=== PATIENT | male | born 1985 | race Caucasian/White ===

== ENCOUNTER 2022-09-09 16:38 | Inpatient (IN) | payer BC ==
[~2022-09-09] VITALS: Ht 195.6 cm; Wt 132.4 kg
[2022-09-09] MEDS ORDERED: ONDANSETRON HCL INJ 2MG/ML 2ML 2 MG/ML VIAL IV STA (17:07)
[2022-09-09] MEDS ORDERED: SODIUM CHLORIDE 0.9% 1000ML 1,000 ML IV ONE ×2 (17:15→18:15)
[2022-09-09 17:27] LABS: BASOPHILS # (AUTO) 0.1 (0.0-0.1); BASOPHILS % 0.9 % (0.0-1.0); EOSINOPHILS % 0.2 % (0.0-6.0); HEMATOCRIT 50.2 % (38.2-49.6); HEMOGLOBIN 16.8 g/dL (14.0-18.0); LYMPHOCYTES # (AUTO) 2.4 (1.0-3.2); LYMPHOCYTES % 18.1 % (18.0-39.1); MEAN CORPUSCULAR HEMOGLOBIN 30.3 pg (28-32); MEAN CORPUSCULAR HGB CONC 33.5 g/dL (31-35); MEAN CORPUSCULAR VOLUME 90.6 fL (81-99); MONOCYTES # (AUTO) 0.9 (0.2-0.8); MONOCYTES % 7.2 % (4.4-11.3); NEUTROPHILS # (AUTO) 9.4 (2.1-6.9); NEUTROPHILS % 71.3 % (38.7-80.0); PLATELET COUNT 516 x10e3/uL (140-360); RED BLOOD COUNT 5.54 x10e6/uL (4.3-5.7); RED CELL DISTRIBUTION WIDTH 10.9 % (11.7-14.4)
[2022-09-09 17:34] LABS: CLARITY,URINE CLEAR (CLEAR); COLOR,URINE YELLOW (YELLOW); KETONES,URINE >=160 (NEGATIVE); LEUKOCYTE ESTERASE ,URINE NEGATIVE (NEGATIVE); NITRITE,URINE NEGATIVE (NEGATIVE); PROTEIN,URINE DIPSTICK 2+ (NEGATIVE); URINE UROBILINOGEN 0.2 mg/dL (0.2 - 1)
[2022-09-09 17:49] LABS: ALBUMIN 3.4 g/dL (3.5-5.0); ALBUMIN/GLOBULIN RATIO 0.6 (0.8-2.0); ANION GAP 27.9 mmol/L (8-16); BACTERIA,URINE RARE /HPF; CREATININE, SERUM 1.55 mg/dL (0.72-1.25); EPITHELIAL CELLS,URINE RARE /LPF; POTASSIUM 4.9 mmol/L (3.5-5.1); WBC,URINE (MAN) 0-5 /HPF (0-5)
[2022-09-09] MEDS ORDERED: MAGNESIUM SULF 1GRAM/DEXTROSE 100 ML IV PRN (18:15)
[2022-09-09] MEDS: DEXTROSE 5%/0.45% SOD CHL 1,000 ML IV SCH (18:15)
[2022-09-09] MEDS: SODIUM CHLORIDE 0.9% 1000ML 1,000 ML IV SCH ×2 (18:15→22:15)
[2022-09-09] MEDS ORDERED: ONDANSETRON HCL INJ 2MG/ML 2ML 2 MG/ML VIAL IV PRN (18:15)
[2022-09-09] MEDS ORDERED: POTASSIUM CHLORIDE 20MEQ/100ML 200 ML IV PRN (18:15)
[2022-09-09] MEDS: INSULIN REGULAR, HUMAN 3ML VL 100 UNIT in SODIUM CHLORIDE 0.9% 100 ML IV SCH ×2 (18:23)
[2022-09-09] MEDS ORDERED: IOPAMIDOL 370 MG/ML 100 ML INFUS..BTL INJ ONE (18:26)
[2022-09-09] MEDS ORDERED: SODIUM CHLORIDE 0.9% 100 ML ONE (18:33)
[2022-09-09] MEDS ORDERED: ACETAMINOPHEN 325 MG TAB PO PRN (18:45)
[2022-09-09] MEDS ORDERED: ZOLPIDEM TARTRATE 5 MG TAB PO PRN (18:45)
[2022-09-09 20:30] VITALS: BP 158/95
[2022-09-09] MEDS ORDERED: LISINOPRIL10 MG PO (20:56)
[2022-09-09] MEDS ORDERED: LEVOTHYROXINE50 MCG PO (20:56)
[2022-09-09] MEDS ORDERED: ATORVASTATIN CA20 MG PO (20:56)
[2022-09-09] MEDS ORDERED: METFORMIN HCL500 MG PO (20:56)
[2022-09-09 21:00] VITALS: BP_SYST 142; BP_SYST 158; BP_DIAS 86; BP_DIAS 95
[2022-09-09 21:05] VITALS: BP 158/95
[2022-09-09 22:00] VITALS: BP 146/87
[2022-09-09 22:46] LABS: ANION GAP 23.6 mmol/L (8-16); CREATININE, SERUM 1.33 mg/dL (0.72-1.25); MAGNESIUM 2.1 MG/DL (1.3-2.1)
[2022-09-09 22:48] LABS: POTASSIUM 3.6 mmol/L (3.5-5.1)
[2022-09-09 23:00] VITALS: BP 133/79
[2022-09-10] VITALS (17 sets, daily range): BP systolic 108–151; BP diastolic 56–103
[2022-09-10] MEDS: DEXTROSE 5%/0.45% SOD CHL 1,000 ML IV SCH ×3 (01:50→18:07)
[2022-09-10] MEDS: SODIUM CHLORIDE 0.9% 1000ML 1,000 ML IV SCH ×7 (02:15→22:15)
[2022-09-10 02:20] LABS: ANION GAP 14.6 mmol/L (8-16); CREATININE, SERUM 1.2 mg/dL (0.72-1.25); MAGNESIUM 2.3 MG/DL (1.3-2.1); POTASSIUM 3.6 mmol/L (3.5-5.1)
[2022-09-10] MEDS: INSULIN REGULAR, HUMAN 3ML VL 100 UNIT in SODIUM CHLORIDE 0.9% 100 ML IV SCH ×4 (05:02→14:31)
[2022-09-10 06:10] LABS: BASOPHILS # (AUTO) 0.1 (0.0-0.1); BASOPHILS % 1.1 % (0.0-1.0); EOSINOPHILS # (AUTO) 0.1 (0.0-0.4); HEMATOCRIT 44.1 % (38.2-49.6); LYMPHOCYTES # (AUTO) 2.5 (1.0-3.2); LYMPHOCYTES % 24.4 % (18.0-39.1); MEAN CORPUSCULAR HEMOGLOBIN 29.9 pg (28-32); MONOCYTES # (AUTO) 1.2 (0.2-0.8); MONOCYTES % 11.7 % (4.4-11.3); NEUTROPHILS # (AUTO) 6.1 (2.1-6.9); NEUTROPHILS % 60.2 % (38.7-80.0); PLATELET COUNT 412 x10e3/uL (140-360); RED BLOOD COUNT 5.01 x10e6/uL (4.3-5.7); RED CELL DISTRIBUTION WIDTH 10.9 % (11.7-14.4)
[2022-09-10 06:29] LABS: ANION GAP 12.4 mmol/L (8-16); CALCIUM 9.2 mg/dL (8.4-10.2); CREATININE, SERUM 0.93 mg/dL (0.72-1.25); MAGNESIUM 2.1 MG/DL (1.3-2.1); POTASSIUM 3.4 mmol/L (3.5-5.1)
[2022-09-10] MEDS: POTASSIUM CHLORIDE 20MEQ/100ML 100 ML INJ PRN (06:41)
[2022-09-10] MEDS ORDERED: POTASSIUM CHLORIDE 20MEQ/100ML 100 ML ONE (06:53)
[2022-09-10] MEDS ORDERED: Vancomycin IV 1.25 GM in SODIUM CHLORIDE 0.9% 250ML 250 ML IV SCH (10:15)
[2022-09-10 10:46] LABS: ANION GAP 10.6 mmol/L (8-16); CALCIUM 8.2 mg/dL (8.4-10.2); CREATININE, SERUM 0.83 mg/dL (0.72-1.25); POTASSIUM 3.6 mmol/L (3.5-5.1)
[2022-09-10] MEDS: VANCOMYCIN HCL 1.25 GM in SODIUM CHLORIDE 0.9% 250ML 250 ML IV SCH ×2 (11:06→22:58)
[2022-09-10 14:56] LABS: ANION GAP 9.3 mmol/L (8-16); CALCIUM 8.2 mg/dL (8.4-10.2); CREATININE, SERUM 0.77 mg/dL (0.72-1.25); MAGNESIUM 2.1 MG/DL (1.3-2.1); POTASSIUM 3.3 mmol/L (3.5-5.1)
[2022-09-10] MEDS ORDERED: ATORVASTATIN 20 MG TAB PO SCH (21:00)
[2022-09-10 21:03] LABS: ANION GAP 10.9 mmol/L (8-16); CALCIUM 8.6 mg/dL (8.4-10.2); CREATININE, SERUM 0.78 mg/dL (0.72-1.25)
[2022-09-10 21:09] LABS: POTASSIUM 2.9 mmol/L (3.5-5.1)
[2022-09-10] MEDS ORDERED: POTASSIUM CHLORIDE 20MEQ/100ML 200 ML ONE (21:45)
[2022-09-11] VITALS (15 sets, daily range): BP systolic 115–162; BP diastolic 70–100
[2022-09-11 01:07] LABS: ANION GAP 10.3 mmol/L (8-16); CALCIUM 8.7 mg/dL (8.4-10.2); CREATININE, SERUM 0.71 mg/dL (0.72-1.25); MAGNESIUM 1.9 MG/DL (1.3-2.1); POTASSIUM 3.3 mmol/L (3.5-5.1)
[2022-09-11] MEDS: INSULIN REGULAR, HUMAN 3ML VL 100 UNIT in SODIUM CHLORIDE 0.9% 100 ML IV SCH ×4 (02:42→13:44)
[2022-09-11] MEDS: DEXTROSE 5%/0.45% SOD CHL 1,000 ML IV SCH ×3 (02:49→18:15)
[2022-09-11 07:35] LABS: ANION GAP 9.9 mmol/L (8-16); CALCIUM 8.6 mg/dL (8.4-10.2); CREATININE, SERUM 0.59 mg/dL (0.72-1.25); MAGNESIUM 1.9 MG/DL (1.3-2.1)
[2022-09-11 07:37] LABS: POTASSIUM 2.9 mmol/L (3.5-5.1)
[2022-09-11] MEDS ORDERED: POTASSIUM CHLORIDE 20MEQ/100ML 200 ML IV PRN (08:15)
[2022-09-11] MEDS: LISINOPRIL 10 MG TAB PO SCH (09:00)
[2022-09-11] MEDS: LEVOTHYROXINE SODIUM 50 MCG TAB PO SCH (09:00)
[2022-09-11] MEDS: POTASSIUM CHLORIDE 20MEQ/100ML 100 ML INJ PRN ×2 (09:21→20:46)
[2022-09-11] MEDS: VANCOMYCIN HCL 1.25 GM in SODIUM CHLORIDE 0.9% 250ML 250 ML IV SCH (10:30)
[2022-09-11 11:04] LABS: ANION GAP 10.5 mmol/L (8-16); CALCIUM 8.5 mg/dL (8.4-10.2); CREATININE, SERUM 0.67 mg/dL (0.72-1.25); MAGNESIUM 1.7 MG/DL (1.3-2.1); POTASSIUM 3.5 mmol/L (3.5-5.1)
[2022-09-11 15:34] LABS: ANION GAP 10.5 mmol/L (8-16); BLOOD UREA NITROGEN < 5 mg/dL (7-26); CALCIUM 8.7 mg/dL (8.4-10.2); CARBON DIOXIDE 19 mmol/L (22-29); CHLORIDE 104 mmol/L (98-107); CREATININE, SERUM 0.69 mg/dL (0.72-1.25); GLUCOSE 225 mg/dL (74-118); MAGNESIUM 1.9 MG/DL (1.3-2.1); POTASSIUM 3.5 mmol/L (3.5-5.1); SODIUM 130 mmol/L (136-145)
[2022-09-11 15:36] LABS: BUN/CREATININE RATIO 7 (6-25)
[2022-09-11 19:42] LABS: ANION GAP 9.9 mmol/L (8-16); BLOOD UREA NITROGEN < 5 mg/dL (7-26); BUN/CREATININE RATIO 8 (6-25); CALCIUM 8.9 mg/dL (8.4-10.2); CARBON DIOXIDE 19 mmol/L (22-29); CHLORIDE 108 mmol/L (98-107); CREATININE, SERUM 0.59 mg/dL (0.72-1.25); GLUCOSE 78 mg/dL (74-118); MAGNESIUM 1.9 MG/DL (1.3-2.1); SODIUM 134 mmol/L (136-145)
[2022-09-11 19:43] LABS: POTASSIUM 2.9 mmol/L (3.5-5.1)
[2022-09-11] MEDS: ATORVASTATIN 20 MG TAB PO SCH (20:45)
[2022-09-11 22:59] LABS: BLOOD UREA NITROGEN < 5 mg/dL (7-26); BUN/CREATININE RATIO 7 (6-25); CALCIUM 9.1 mg/dL (8.4-10.2); CARBON DIOXIDE 18 mmol/L (22-29); CHLORIDE 105 mmol/L (98-107); CREATININE, SERUM 0.68 mg/dL (0.72-1.25); GLUCOSE 223 mg/dL (74-118); MAGNESIUM 1.8 MG/DL (1.3-2.1); SODIUM 132 mmol/L (136-145)
[2022-09-11] MEDS ORDERED: SODIUM CHLORIDE 0.9% 250ML 250 ML ONE (23:55)
[2022-09-11] MEDS ORDERED: Vancomycin IV 1 GM VIAL ONE (23:55)
[2022-09-11] MEDS ORDERED: Vancomycin IV 500 MG ONE (23:57)
[2022-09-12] VITALS (18 sets, daily range): BP systolic 117–141; BP diastolic 67–94
[2022-09-12] MEDS: VANCOMYCIN HCL 1.25 GM in SODIUM CHLORIDE 0.9% 250ML 250 ML IV SCH ×3 (00:05→21:22)
[2022-09-12] MEDS: INSULIN REGULAR, HUMAN 3ML VL 100 UNIT in SODIUM CHLORIDE 0.9% 100 ML IV SCH ×2 (00:49)
[2022-09-12 02:59] LABS: ANION GAP 13.2 mmol/L (8-16); BLOOD UREA NITROGEN < 5 mg/dL (7-26); BUN/CREATININE RATIO 8 (6-25); CALCIUM 9.1 mg/dL (8.4-10.2); CARBON DIOXIDE 19 mmol/L (22-29); CHLORIDE 108 mmol/L (98-107); CREATININE, SERUM 0.64 mg/dL (0.72-1.25); GLUCOSE 202 mg/dL (74-118); MAGNESIUM 1.9 MG/DL (1.3-2.1); POTASSIUM 3.2 mmol/L (3.5-5.1); SODIUM 137 mmol/L (136-145)
[2022-09-12] MEDS: POTASSIUM CHLORIDE 20MEQ/100ML 100 ML INJ PRN ×2 (04:34→17:34)
[2022-09-12 06:50] LABS: BASOPHILS # (AUTO) 0.1 (0.0-0.1); BASOPHILS % 0.7 % (0.0-1.0); EOSINOPHILS # (AUTO) 0.1 (0.0-0.4); EOSINOPHILS % 0.7 % (0.0-6.0); HEMATOCRIT 39.7 % (38.2-49.6); HEMOGLOBIN 13.6 g/dL (14.0-18.0); LYMPHOCYTES # (AUTO) 2.4 (1.0-3.2); LYMPHOCYTES % 24.4 % (18.0-39.1); MEAN CORPUSCULAR HEMOGLOBIN 29.7 pg (28-32); MEAN CORPUSCULAR HGB CONC 34.3 g/dL (31-35); MEAN CORPUSCULAR VOLUME 86.7 fL (81-99); MONOCYTES # (AUTO) 1.1 (0.2-0.8); MONOCYTES % 11.8 % (4.4-11.3); NEUTROPHILS # (AUTO) 5.9 (2.1-6.9); NEUTROPHILS % 60.8 % (38.7-80.0); PLATELET COUNT 332 x10e3/uL (140-360); RED BLOOD COUNT 4.58 x10e6/uL (4.3-5.7); RED CELL DISTRIBUTION WIDTH 11.1 % (11.7-14.4)
[2022-09-12 06:58] LABS: ANION GAP 11.2 mmol/L (8-16); BLOOD UREA NITROGEN < 5 mg/dL (7-26); CALCIUM 8.9 mg/dL (8.4-10.2); CARBON DIOXIDE 21 mmol/L (22-29); CHLORIDE 108 mmol/L (98-107); CREATININE, SERUM 0.59 mg/dL (0.72-1.25); GLUCOSE 111 mg/dL (74-118); MAGNESIUM 1.7 MG/DL (1.3-2.1); POTASSIUM 3.2 mmol/L (3.5-5.1); SODIUM 137 mmol/L (136-145)
[2022-09-12 06:59] LABS: BUN/CREATININE RATIO 8 (6-25)
[2022-09-12] MEDS: DEXTROSE 5%/0.45% SOD CHL 1,000 ML IV SCH (07:53)
[2022-09-12] MEDS: LEVOTHYROXINE SODIUM 50 MCG TAB PO SCH (08:34)
[2022-09-12] MEDS: LISINOPRIL 10 MG TAB PO SCH (08:34)
[2022-09-12] MEDS ORDERED: MAGNESIUM SULF 1GRAM/DEXTROSE 100 ML IV ONE (09:00)
[2022-09-12] MEDS ORDERED: DEXTROSE 50% SYRINGE 50 ML IV PRN (10:00)
[2022-09-12] MEDS ORDERED: INSULIN GLARGINE 100 UNITS/ML VIAL SQ ONE (10:00)
[2022-09-12] MEDS: SODIUM CHLORIDE 0.45% 1,000 ML IV SCH ×2 (10:32→23:36)
[2022-09-12 10:56] LABS: ANION GAP 12.3 mmol/L (8-16); BLOOD UREA NITROGEN < 5 mg/dL (7-26); CALCIUM 8.5 mg/dL (8.4-10.2); CARBON DIOXIDE 19 mmol/L (22-29); CHLORIDE 105 mmol/L (98-107); CREATININE, SERUM 0.65 mg/dL (0.72-1.25); GLUCOSE 268 mg/dL (74-118); MAGNESIUM 1.9 MG/DL (1.3-2.1); POTASSIUM 3.3 mmol/L (3.5-5.1); SODIUM 133 mmol/L (136-145)
[2022-09-12 10:59] LABS: BUN/CREATININE RATIO 8 (6-25)
[2022-09-12] MEDS: INSULIN REGULAR, HUMAN 100 UNIT/1 ML SQ SCH ×2 (11:17→17:00)
[2022-09-12 14:55] LABS: ANION GAP 13.4 mmol/L (8-16); BLOOD UREA NITROGEN < 5 mg/dL (7-26); CALCIUM 8.4 mg/dL (8.4-10.2); CARBON DIOXIDE 19 mmol/L (22-29); CHLORIDE 104 mmol/L (98-107); CREATININE, SERUM 0.68 mg/dL (0.72-1.25); GLUCOSE 312 mg/dL (74-118); MAGNESIUM 1.8 MG/DL (1.3-2.1); POTASSIUM 3.4 mmol/L (3.5-5.1); SODIUM 133 mmol/L (136-145)
[2022-09-12 15:03] LABS: BUN/CREATININE RATIO 7 (6-25)
[2022-09-12 18:23] LABS: ANION GAP 12.3 mmol/L (8-16); BLOOD UREA NITROGEN < 5 mg/dL (7-26); BUN/CREATININE RATIO 8 (6-25); CALCIUM 8.8 mg/dL (8.4-10.2); CARBON DIOXIDE 20 mmol/L (22-29); CHLORIDE 106 mmol/L (98-107); CREATININE, SERUM 0.63 mg/dL (0.72-1.25); GLUCOSE 275 mg/dL (74-118); MAGNESIUM 1.7 MG/DL (1.3-2.1); POTASSIUM 3.3 mmol/L (3.5-5.1); SODIUM 135 mmol/L (136-145)
[2022-09-12] MEDS ORDERED: MAGNESIUM SULF 1GRAM/DEXTROSE 100 ML IV PRN (21:00)
[2022-09-12] MEDS ORDERED: POTASSIUM CHLORIDE 20MEQ/100ML 100 ML INJ PRN (21:00)
[2022-09-12] MEDS ORDERED: INSULIN REGULAR, HUMAN 100 UNIT/1 ML SQ SCH (21:00)
[2022-09-12] MEDS ORDERED: ONDANSETRON HCL INJ 2MG/ML 2ML 2 MG/ML VIAL IV PRN (21:00)
[2022-09-12] MEDS: ATORVASTATIN 20 MG TAB PO SCH (21:21)
[2022-09-12 22:39] LABS: ANION GAP 14.6 mmol/L (8-16); BLOOD UREA NITROGEN < 5 mg/dL (7-26); CALCIUM 8.4 mg/dL (8.4-10.2); CARBON DIOXIDE 20 mmol/L (22-29); CHLORIDE 103 mmol/L (98-107); CREATININE, SERUM 0.66 mg/dL (0.72-1.25); GLUCOSE 277 mg/dL (74-118); POTASSIUM 3.6 mmol/L (3.5-5.1); SODIUM 134 mmol/L (136-145)
[2022-09-12 22:40] LABS: BUN/CREATININE RATIO 8 (6-25)
[2022-09-13] VITALS (8 sets, daily range): BP systolic 113–150; BP diastolic 67–92
[2022-09-13 03:01] LABS: ANION GAP 11.3 mmol/L (8-16); BLOOD UREA NITROGEN < 5 mg/dL (7-26); BUN/CREATININE RATIO 8 (6-25); CALCIUM 8.4 mg/dL (8.4-10.2); CARBON DIOXIDE 22 mmol/L (22-29); CHLORIDE 104 mmol/L (98-107); CREATININE, SERUM 0.65 mg/dL (0.72-1.25); GLUCOSE 284 mg/dL (74-118); MAGNESIUM 1.9 MG/DL (1.3-2.1); POTASSIUM 3.3 mmol/L (3.5-5.1); SODIUM 134 mmol/L (136-145)
[2022-09-13 06:24] LABS: BASOPHILS % 0.3 % (0.0-1.0); EOSINOPHILS # (AUTO) 0.1 (0.0-0.4); EOSINOPHILS % 0.8 % (0.0-6.0); HEMATOCRIT 37.9 % (38.2-49.6); HEMOGLOBIN 12.8 g/dL (14.0-18.0); LYMPHOCYTES # (AUTO) 2.9 (1.0-3.2); LYMPHOCYTES % 29.3 % (18.0-39.1); MEAN CORPUSCULAR HEMOGLOBIN 30.4 pg (28-32); MEAN CORPUSCULAR HGB CONC 33.8 g/dL (31-35); MONOCYTES # (AUTO) 1.1 (0.2-0.8); MONOCYTES % 10.7 % (4.4-11.3); NEUTROPHILS # (AUTO) 5.6 (2.1-6.9); NEUTROPHILS % 57.4 % (38.7-80.0); PLATELET COUNT 285 x10e3/uL (140-360); RED BLOOD COUNT 4.21 x10e6/uL (4.3-5.7)
[2022-09-13 06:46] LABS: ANION GAP 11.7 mmol/L (8-16); BLOOD UREA NITROGEN < 5 mg/dL (7-26); CALCIUM 8.7 mg/dL (8.4-10.2); CARBON DIOXIDE 25 mmol/L (22-29); CHLORIDE 102 mmol/L (98-107); CREATININE, SERUM 0.69 mg/dL (0.72-1.25); GLUCOSE 267 mg/dL (74-118); MAGNESIUM 1.8 MG/DL (1.3-2.1); POTASSIUM 3.7 mmol/L (3.5-5.1); SODIUM 135 mmol/L (136-145)
[2022-09-13 06:47] LABS: BUN/CREATININE RATIO 7 (6-25)
[2022-09-13] MEDS: LEVOTHYROXINE SODIUM 50 MCG TAB PO SCH (07:30)
[2022-09-13] MEDS: INSULIN REGULAR, HUMAN 100 UNIT/1 ML SQ SCH ×4 (07:30→21:54)
[2022-09-13] MEDS: SITAGLIPTIN 100 MG TAB PO SCH (08:16)
[2022-09-13] MEDS: LISINOPRIL 10 MG TAB PO SCH (08:16)
[2022-09-13 10:32] LABS: ANION GAP 11.7 mmol/L (8-16); BLOOD UREA NITROGEN < 5 mg/dL (7-26); CALCIUM 8.6 mg/dL (8.4-10.2); CARBON DIOXIDE 25 mmol/L (22-29); CHLORIDE 102 mmol/L (98-107); CREATININE, SERUM 0.69 mg/dL (0.72-1.25); GLUCOSE 266 mg/dL (74-118); MAGNESIUM 1.9 MG/DL (1.3-2.1); POTASSIUM 3.7 mmol/L (3.5-5.1); SODIUM 135 mmol/L (136-145)
[2022-09-13 10:33] LABS: BUN/CREATININE RATIO 7 (6-25)
[2022-09-13] MEDS: VANCOMYCIN HCL 1.25 GM in SODIUM CHLORIDE 0.9% 250ML 250 ML IV SCH (12:25)
[2022-09-13] MEDS ORDERED: SEVOFLURANE INHAL SOLN 250 ML PEN BTL ONE (12:43)
[2022-09-13] MEDS ORDERED: ROCURONIUM BROMIDE 10 MG/ML 5ML VIAL IV ONE (12:43)
[2022-09-13] MEDS ORDERED: KETOROLAC TROMETHAMINE 30 MG/ML VIAL ONE (12:43)
[2022-09-13] MEDS ORDERED: LIDOCAINE HCL 2% LOCAL INJ 5 ML SDV VIAL INJ ONE (12:43)
[2022-09-13] MEDS ORDERED: PROPOFOL IV EMULSION 10 MG/ML 20 ML VIAL ONE (12:43)
[2022-09-13] MEDS ORDERED: POVIDONE IODINE 0.05% 0.05 % ML PO ONE (12:43)
[2022-09-13] MEDS ORDERED: DEXAMETHASONE SOD PHOS INJ 4 MG/ML SDV ONE (12:43)
[2022-09-13] MEDS ORDERED: LABETALOL HCL 5 MG/ML 20ML VIAL ONE (12:43)
[2022-09-13] MEDS ORDERED: ONDANSETRON HCL INJ 2MG/ML 2ML 2 MG/ML VIAL ONE (12:43)
[2022-09-13] MEDS ORDERED: METOCLOPRAMIDE HCL 10 MG/2ML VIAL ONE (12:43)
[2022-09-13] MEDS: SODIUM CHLORIDE 0.45% 1,000 ML IV SCH (14:34)
[2022-09-13 14:46] LABS: ANION GAP 12.6 mmol/L (8-16); BLOOD UREA NITROGEN < 5 mg/dL (7-26); CALCIUM 8.4 mg/dL (8.4-10.2); CARBON DIOXIDE 24 mmol/L (22-29); CHLORIDE 102 mmol/L (98-107); CREATININE, SERUM 0.63 mg/dL (0.72-1.25); GLUCOSE 240 mg/dL (74-118); MAGNESIUM 1.9 MG/DL (1.3-2.1); POTASSIUM 3.6 mmol/L (3.5-5.1); SODIUM 135 mmol/L (136-145)
[2022-09-13 14:48] LABS: BUN/CREATININE RATIO 8 (6-25)
[2022-09-13] MEDS ORDERED: FENTANYL CITRATE/PF 100MCG/2 ML INJ ONE (15:28)
[2022-09-13] MEDS ORDERED: MIDAZOLAM HCL 2 MG/2 ML VIAL ONE (15:28)
[2022-09-13] MEDS ORDERED: Morphine 10mg syringe 10 MG/ML INJ ONE (15:28)
[2022-09-13] MEDS: METFORMIN HCL 500 MG TAB PO SCH (17:00)
[2022-09-13] MEDS ORDERED: LIDOCAINE HCL 1% LOCAL INJ 20 ML VIAL ONE (17:34)
[2022-09-13] MEDS ORDERED: BUPIVACAINE 0.5%/EPI 30 ML SDV INJ ONE (17:34)
[2022-09-13] MEDS ORDERED: LIDOCAINE JELLY 2% 10ML URO-JET ONE (17:35)
[2022-09-13] MEDS ORDERED: HYDROMORPHONE 1MG/1ML INJ IV PRN (19:00)
[2022-09-13] MEDS ORDERED: KETOROLAC TROMETHAMINE 30 MG/ML VIAL IV PRN (19:00)
[2022-09-13] MEDS ORDERED: HYDROCODONE/APAP 7.5MG-325MG 1 EA TAB PO PRN (19:00)
[2022-09-13 20:41] LABS: ANION GAP 15.2 mmol/L (8-16); BLOOD UREA NITROGEN < 5 mg/dL (7-26); CALCIUM 8.6 mg/dL (8.4-10.2); CARBON DIOXIDE 23 mmol/L (22-29); CHLORIDE 101 mmol/L (98-107); CREATININE, SERUM 0.69 mg/dL (0.72-1.25); GLUCOSE 308 mg/dL (74-118); MAGNESIUM 1.7 MG/DL (1.3-2.1); POTASSIUM 4.2 mmol/L (3.5-5.1); SODIUM 135 mmol/L (136-145)
[2022-09-13 20:44] LABS: BUN/CREATININE RATIO 7 (6-25)
[2022-09-13] MEDS: ATORVASTATIN 20 MG TAB PO SCH (21:48)
[2022-09-14] VITALS (7 sets, daily range): BP systolic 120–142; BP diastolic 70–90
[2022-09-14] MEDS: VANCOMYCIN HCL 1.25 GM in SODIUM CHLORIDE 0.9% 250ML 250 ML IV SCH ×3 (01:02→23:56)
[2022-09-14] MEDS: SODIUM CHLORIDE 0.45% 1,000 ML IV SCH (05:42)
[2022-09-14 06:20] LABS: BASOPHILS % 0.4 % (0.0-1.0); EOSINOPHILS # (AUTO) 0.1 (0.0-0.4); EOSINOPHILS % 0.9 % (0.0-6.0); HEMATOCRIT 32.7 % (38.2-49.6); HEMOGLOBIN 10.8 g/dL (14.0-18.0); LYMPHOCYTES # (AUTO) 2.9 (1.0-3.2); MEAN CORPUSCULAR HEMOGLOBIN 30.4 pg (28-32); MEAN CORPUSCULAR VOLUME 92.1 fL (81-99); MONOCYTES # (AUTO) 0.9 (0.2-0.8); MONOCYTES % 8.6 % (4.4-11.3); NEUTROPHILS # (AUTO) 5.9 (2.1-6.9); NEUTROPHILS % 60.2 % (38.7-80.0); PLATELET COUNT 293 x10e3/uL (140-360); RED BLOOD COUNT 3.55 x10e6/uL (4.3-5.7); RED CELL DISTRIBUTION WIDTH 10.9 % (11.7-14.4)
[2022-09-14 06:45] LABS: CALCIUM 8.5 mg/dL (8.4-10.2); CREATININE, SERUM 0.64 mg/dL (0.72-1.25)
[2022-09-14] MEDS: INSULIN REGULAR, HUMAN 100 UNIT/1 ML SQ SCH ×4 (09:52→21:26)
[2022-09-14] MEDS: SITAGLIPTIN 100 MG TAB PO SCH (09:52)
[2022-09-14] MEDS: LEVOTHYROXINE SODIUM 50 MCG TAB PO SCH (09:52)
[2022-09-14] MEDS: METFORMIN HCL 500 MG TAB PO SCH ×2 (09:52→17:40)
[2022-09-14] MEDS: LISINOPRIL 10 MG TAB PO SCH (09:53)
[2022-09-14] MEDS: ATORVASTATIN 20 MG TAB PO SCH (21:20)
[2022-09-14] MEDS ORDERED: SODIUM CHLORIDE 0.9% 250ML 250 ML ONE (21:26)
[2022-09-15] VITALS (7 sets, daily range): BP systolic 109–134; BP diastolic 74–84
[2022-09-15 08:57] LABS: BASOPHILS # (AUTO) 0.1 (0.0-0.1); BASOPHILS % 0.6 % (0.0-1.0); EOSINOPHILS # (AUTO) 0.2 (0.0-0.4); EOSINOPHILS % 2.3 % (0.0-6.0); HEMATOCRIT 35.1 % (38.2-49.6); HEMOGLOBIN 11.8 g/dL (14.0-18.0); LYMPHOCYTES # (AUTO) 2.5 (1.0-3.2); LYMPHOCYTES % 28.5 % (18.0-39.1); MEAN CORPUSCULAR HGB CONC 33.6 g/dL (31-35); MEAN CORPUSCULAR VOLUME 89.3 fL (81-99); MONOCYTES # (AUTO) 0.9 (0.2-0.8); MONOCYTES % 9.9 % (4.4-11.3); NEUTROPHILS # (AUTO) 5.1 (2.1-6.9); NEUTROPHILS % 57.8 % (38.7-80.0); PLATELET COUNT 359 x10e3/uL (140-360); RED BLOOD COUNT 3.93 x10e6/uL (4.3-5.7); RED CELL DISTRIBUTION WIDTH 11.6 % (11.7-14.4)
[2022-09-15] MEDS: LISINOPRIL 10 MG TAB PO SCH (09:10)
[2022-09-15] MEDS: METFORMIN HCL 500 MG TAB PO SCH (09:10)
[2022-09-15] MEDS: LEVOTHYROXINE SODIUM 50 MCG TAB PO SCH (09:10)
[2022-09-15] MEDS: SITAGLIPTIN 100 MG TAB PO SCH (09:11)
[2022-09-15] MEDS: INSULIN REGULAR, HUMAN 100 UNIT/1 ML SQ SCH ×2 (09:12→12:14)
[2022-09-15 09:15] LABS: ANION GAP 12.4 mmol/L (8-16); CALCIUM 8.7 mg/dL (8.4-10.2); CREATININE, SERUM 0.72 mg/dL (0.72-1.25); POTASSIUM 4.4 mmol/L (3.5-5.1)
[2022-09-15] MEDS: VANCOMYCIN HCL 1.25 GM in SODIUM CHLORIDE 0.9% 250ML 250 ML IV SCH (10:30)
[2022-09-15] MEDS ORDERED: JANUVIA100 MG PO (11:13)
[2022-09-15] MEDS ORDERED: ACETAMINOPHEN325 M1 PO (11:13)
[2022-09-15] MEDS ORDERED: AUGMENTIN 500-1 EACH PO ×2 (14:54→15:12)
[2022-09-15] MEDS ORDERED: ONDANSETRON ODT4 MG PO (14:56)
== END 2022-09-15 16:20 | disposition home or self-care (01) | DRG 853 ==
LOC: ER 16:47 → ERHOLD 18:13 → ICU 20:09 → MED/SURG 09-12 15:35 → MED/SURG3 09-13 12:53
PROVIDERS: ADMIT Internal Medicine; ATTEND Internal Medicine
PROC: 3E03329 Introduction of Other Anti-infective into Peripheral Vein, Percutaneous Approach (ICD-10-PCS; 2022-09-09)
PROC: 3E03329 Introduction of Other Anti-infective into Peripheral Vein, Percutaneous Approach (ICD-10-PCS; 2022-09-10)
PROC: 3E03329 Introduction of Other Anti-infective into Peripheral Vein, Percutaneous Approach (ICD-10-PCS; 2022-09-10)
PROC: 3E03329 Introduction of Other Anti-infective into Peripheral Vein, Percutaneous Approach (ICD-10-PCS; 2022-09-11)
PROC: 3E03329 Introduction of Other Anti-infective into Peripheral Vein, Percutaneous Approach (ICD-10-PCS; 2022-09-11)
PROC: 3E03329 Introduction of Other Anti-infective into Peripheral Vein, Percutaneous Approach (ICD-10-PCS; 2022-09-12)
PROC: 3E03329 Introduction of Other Anti-infective into Peripheral Vein, Percutaneous Approach (ICD-10-PCS; 2022-09-12)
PROC: 0D9P0ZZ Drainage of Rectum, Open Approach (ICD-10-PCS; 2022-09-13)
PROC: 3E03329 Introduction of Other Anti-infective into Peripheral Vein, Percutaneous Approach (ICD-10-PCS; 2022-09-13)
PROC: 3E03329 Introduction of Other Anti-infective into Peripheral Vein, Percutaneous Approach (ICD-10-PCS; 2022-09-13)
PROC: 0J990ZZ Drainage of Buttock Subcutaneous Tissue and Fascia, Open Approach (ICD-10-PCS; principal; 2022-09-13 17:58)
PROC: 3E03329 Introduction of Other Anti-infective into Peripheral Vein, Percutaneous Approach (ICD-10-PCS; 2022-09-14)
PROC: 3E03329 Introduction of Other Anti-infective into Peripheral Vein, Percutaneous Approach (ICD-10-PCS; 2022-09-14)
PROC: 3E03329 Introduction of Other Anti-infective into Peripheral Vein, Percutaneous Approach (ICD-10-PCS; 2022-09-15)
PROC: 3E03329 Introduction of Other Anti-infective into Peripheral Vein, Percutaneous Approach (ICD-10-PCS; 2022-09-15)
DX: A41.9 Sepsis, unspecified organism (principal); E11.10 Type 2 diabetes mellitus with ketoacidosis without coma; L02.31 Cutaneous abscess of buttock; N17.9 Acute kidney failure, unspecified; E87.1 Hypo-osmolality and hyponatremia; K61.1 Rectal abscess; E78.5 Hyperlipidemia, unspecified; E83.42 Hypomagnesemia; E87.6 Hypokalemia; I10 Essential (primary) hypertension; E03.9 Hypothyroidism, unspecified; Z82.49 Family history of ischemic heart disease and other diseases of the circulatory system; Z79.84 Long term (current) use of oral hypoglycemic drugs; Z79.899 Other long term (current) drug therapy
CPT/HCPCS: 36415; 74177; 80048; 80053; 80202; 81001; 82948; 83690; 83735; 84100; 85025; 87040; 87071; 87075; 87186; 87205; 94799; 96361; 99252; 99284; J1100; J1815; J1817; J1885; J2001; J2250; J2270; J2405; J2543; J2765; J3010; J3370; J3475; J3480; J7030; J7050; Q9967